=== PATIENT | male | born 1995 | race Caucasian/White ===

== ENCOUNTER 2017-01-26 17:47 | Emergency (ER) | payer OTHER | END 2017-01-26 19:38 | disposition home or self-care (01) | LOC: ER1 17:47 | DX: S80.02XA Contusion of left knee, initial encounter (principal); F90.9 Attention-deficit hyperactivity disorder, unspecified type; F17.210 Nicotine dependence, cigarettes, uncomplicated; V29.9XXA Motorcycle rider (driver) (passenger) injured in unspecified traffic accident, initial encounter; Y92.410 Unspecified street and highway as the place of occurrence of the external cause | CPT/HCPCS: 73564; 99283 ==

== ENCOUNTER 2021-11-20 09:21 | Emergency (ER) | payer OTHER ==
[~2021-11-20 09:21] MED LIST: BACTRIM DS TAB1 EACH PO; BUSPIRONE HCL7.5 MG PO; LODINE CAP 300300 MG PO; NORFLEX 100 MG100 MG PO; VISTARIL25 MG PO
[2021-11-20 10:04] LABS: HEMOGLOBIN 15.3 gm/dl (14.0-17.5); RED BLOOD COUNT 5.01 M/UL (4.20-5.50); WHITE BLOOD COUNT 6.5 K/UL (4.5-11.0)
[2021-11-20 10:42] LABS: BUN/CREATININE RATIO 14 (0-10)
[2021-11-20] MEDS ORDERED: ONDANSETRON ODT4 MG SL (12:49)
[2021-11-20] MEDS ORDERED: PROTONIX40 MG PO (12:49)
== END 2021-11-20 13:03 | disposition home or self-care (01) ==
LOC: ER1 09:21
PROVIDERS: Physician Assistant
DX: U07.1 COVID-19 (principal); J12.82 Pneumonia due to coronavirus disease 2019; R10.13 Epigastric pain; R11.2 Nausea with vomiting, unspecified; F17.200 Nicotine dependence, unspecified, uncomplicated
CPT/HCPCS: 0240U; 71045; 80053; 81001; 83690; 85025; 87081; 87880; 96374; 96375; 99284; C9113; J1885; J2405; Q9967

== ENCOUNTER 2022-03-29 11:51 | Emergency (ER) | payer OTHER ==
[~2022-03-29 11:51] MED LIST changes: +ONDANSETRON ODT4 MG SL; +PROTONIX40 MG PO
[2022-03-29 12:35] LABS: BUN/CREATININE RATIO 9 (0-10)
[2022-03-29 13:06] LABS: HEMOGLOBIN 14.1 gm/dl (14.0-17.5); RED BLOOD COUNT 4.51 M/UL (4.20-5.50); WHITE BLOOD COUNT 4.9 K/UL (4.5-11.0)
== END 2022-03-29 20:16 | disposition short-term general hospital (02) ==
LOC: ER1 11:51
PROVIDERS: Student in an Organized Health Care Education/Training Program
DX: T43.592A Poisoning by other antipsychotics and neuroleptics, intentional self-harm, initial encounter (principal); F32.9 Major depressive disorder, single episode, unspecified; F17.200 Nicotine dependence, unspecified, uncomplicated; Z20.822 Contact with and (suspected) exposure to COVID-19
CPT/HCPCS: 80053; 80307; 81001; 83735; 85025; 93005; 99285; G0480; J7030; U0002